=== PATIENT | male | born 1965 | race African-American/Black ===

== ENCOUNTER 2017-06-13 04:00 | Emergency (ER) | payer BC ==
[2017-06-13] MEDS ORDERED: HYDROcodone/Acetaminophen 10/325 mg Tablet ONE (04:35)
== END 2017-06-13 04:58 | disposition home or self-care (01) ==
LOC: ERS 04:00
DX: M76.9 Unspecified enthesopathy, lower limb, excluding foot (principal); E11.9 Type 2 diabetes mellitus without complications; Z79.899 Other long term (current) drug therapy
CPT/HCPCS: 99283

== ENCOUNTER 2018-06-26 02:54 | Emergency (ER) | payer BC ==
[2018-06-26] MEDS ORDERED: Acetaminophen 325 MG TAB ONE (03:21)
[2018-06-26] MEDS ORDERED: Ketorolac Tromethamine 30 MG/ML VIAL ONE (03:25)
--- NOTE | 2018-06-26 07:47 | RAD ---
TWO TO THREE VIEWS LEFT HIP SERIES: INDICATION: Pain. FINDINGS: Left hip prosthesis is present. No fracture or dislocation identified. Heterotopic densities are se en adjacent to postoperative left hip. IMPRESSION: No acute osseous abnormality. POS: PATRICE
== END 2018-06-26 03:52 | disposition home or self-care (01) ==
LOC: ERS 02:54
DX: M25.552 Pain in left hip (principal); E11.9 Type 2 diabetes mellitus without complications; I10 Essential (primary) hypertension; Z79.899 Other long term (current) drug therapy
CPT/HCPCS: 96372; J1885

== ENCOUNTER 2019-03-15 19:00 | Emergency (ER) | payer BC | END 2019-03-15 20:16 | disposition home or self-care (01) | LOC: ERS 19:00 | DX: E11.65 Type 2 diabetes mellitus with hyperglycemia (principal); Z79.891 Long term (current) use of opiate analgesic; Z79.899 Other long term (current) drug therapy; Z79.4 Long term (current) use of insulin | CPT/HCPCS: 36416; 99284 ==

== ENCOUNTER 2020-03-10 03:25 | Emergency (ER) | payer BC ==
[2020-03-10] MEDS ORDERED: Ketorolac Tromethamine 30 MG/ML VIAL ONE (03:39)
[2020-03-10] MEDS ORDERED: Metoclopramide HCl 10 MG TAB ONE (03:42)
[2020-03-10] MEDS ORDERED: cloNIDine 0.1 MG TAB ONE (04:03)
== END 2020-03-10 04:20 | disposition home or self-care (01) ==
LOC: ERS 03:25
DX: R51 Headache (principal); I10 Essential (primary) hypertension; E11.9 Type 2 diabetes mellitus without complications; Z79.4 Long term (current) use of insulin; Z79.899 Other long term (current) drug therapy
CPT/HCPCS: 96372; 99283; J1885

== ENCOUNTER 2022-03-05 03:28 | Emergency (ER) | payer BC | END 2022-03-05 05:30 | disposition home or self-care (01) | LOC: ERS 03:28 | DX: J18.9 Pneumonia, unspecified organism (principal); Z20.822 Contact with and (suspected) exposure to COVID-19 | CPT/HCPCS: 71045; U0003; U0005 ==